=== PATIENT | female | born 1975 | race Caucasian/White ===

== ENCOUNTER → 2016-08-05 | Outpatient (CLI) | payer BC ==
[2016-08-05 08:10] LABS: CREATININE 0.8 mg/dL (0.5-1.1); ESTIMATED GFR (MDRD EQUATION) > 60
== END | disposition disaster alternative care site (69) ==
LOC: GRAD 07:16 → GLAB 07:30
PROVIDERS: Neurological Surgery
DX: R42 Dizziness and giddiness (principal)